=== PATIENT | female | born 1970 | race Caucasian/White ===

== ENCOUNTER 2021-11-21 10:04 | Outpatient (CLI) | payer BC, SELFPAY ==
[2021-11-21 12:41] LABS: Microalbumin Creatinine Ratio 0 mg/g (0-30); Microalbumin Urine 1 mg/dL
[2021-11-21 12:43] LABS: Potassium* 4.4 mmol/L (3.6-5.1); Sodium* 140 mmol/L (135-149)
[2021-11-21 12:46] LABS: Alanine Aminotransferase* 20 U/L (4-35); Alkaline Phosphatase* 57 U/L (40-150); Aspartate Amino Transferase* 22 U/L (12-35); Blood Urea Nitrogen* 19 mg/dL (7-30); Creatinine* 0.7 mg/dL (0.5-1.5); Estimated Glomerular Filt Rate 103 ml/min; Glucose* 93 mg/dL (60-115)
[2021-11-21 13:02] LABS: Vitamin D 25 Hydroxy* 72 ng/mL (30-80)
[2021-11-21 13:16] LABS: TSH With Reflex to FT4* 0.747 uIU/mL (0.270-4.200)
[2021-11-21 13:38] LABS: Vitamin B12* > 1000 pg/mL (243-894)
[2021-11-21 14:51] LABS: Bilirubin Total* 0.3 mg/dL (0.1-1.5); Carbon Dioxide* 28 mmol/L (20-32); Cholesterol* 198 mg/dL (90-199); HDL Cholesterol* 46 mg/dL (>=50); LDL Cholesterol Calculated 122 mg/dL (<100); Total Protein* 6.5 g/dL (6.0-8.3); Triglycerides* 148 mg/dL (40-149)
[2021-11-21 14:52] LABS: Albumin* 4.3 g/dL (3.3-5.0); Chloride* 106 mmol/L (96-114)
== END 2021-11-21 10:05 | disposition home or self-care (01) ==
PROVIDERS: PCP Family Medicine; Visit Provider Family Medicine
DX: D72.819 Decreased white blood cell count, unspecified (principal); R53.83 Other fatigue; E55.9 Vitamin D deficiency, unspecified; Q63.9 Congenital malformation of kidney, unspecified; Z13.6 Encounter for screening for cardiovascular disorders; R51.9 Headache, unspecified
CPT/HCPCS: 80053; 80061; 82043; 82306; 82570; 82607; 82728; 84443

== ENCOUNTER 2022-02-19 13:55 | Outpatient (CLI) | payer BC, SELFPAY ==
--- NOTE | 2022-02-19 14:00 | CRLHL7_ITS ---
For Patients: As a result of the Century Cures Act, medical imaging exams and procedure reports are released immediately into your electronic medical record. You may view this report before your referring provider. If you have questions, please contact your health care provider. BILATERAL SCREENING MAMMOGRAM WITH COMPUTER-AIDED DETECTION AND TOMOSYNTHESIS TECHNIQUE: CC and MLO views were obtained. These mammographic images have been obtained using full-field digital technique. These mammographic images were interpreted with the benefit of computer-aided detection. Breast Tomosynthesis was used in this interpretation. COMPARISON FILM: 02/13/20, 06/02/18, 05/28/17. FINDINGS: The breasts are heterogeneously dense, which may obscure small masses IMPRESSION: There is no radiographic evidence for malignancy. ASSESSMENT: BI-RADS Category 1: Negative RECOMMENDATION: Routine screening mammogram in 1 year. A lay language report of this examination will be provided to the patient. Carlos Becerra M.D. Diagnostic/Nuclear Medicine Radiologist [email or web address] TIEN/Dictated by: Carlos Becerra MD @ 02/20/2022 8:08:00 AM (Electronically Signed)
== END 2022-02-19 13:56 | disposition home or self-care (01) ==
PROVIDERS: PCP Family Medicine; Visit Provider Family Medicine
DX: Z12.31 Encounter for screening mammogram for malignant neoplasm of breast (principal); R92.2 Inconclusive mammogram
CPT/HCPCS: 77063; 77067

== ENCOUNTER 2023-02-17 14:22 | Outpatient (CLI) | payer OTHER, SELFPAY | END 2023-02-17 14:23 | disposition home or self-care (01) | LOC: NFLDREF 02-19 05:58 | PROVIDERS: PCP Family Medicine; Referring Provider Family Medicine; Visit Provider Physician Assistant | DX: R10.2 Pelvic and perineal pain (principal) | CPT/HCPCS: 87086; 87186 ==

== ENCOUNTER 2023-02-18 12:45 | Outpatient (CLI) | payer OTHER, SELFPAY ==
--- NOTE | 2023-02-18 13:00 | CRLHL7_ITS ---
For Patients: As a result of the Century Cures Act, medical imaging exams and procedure reports are released immediately into your electronic medical record. You may view this report before your referring provider. If you have questions, please contact your health care provider. CLINICAL HISTORY: Hypothyroidism TECHNIQUE: 2D flores scale and color Doppler images were acquired of the pelvis using a transvaginal approach. Power spectral doppler evaluation of the left ovary also performed. FINDINGS: The uterus is absent. The left ovary measures 2.2 x 1.4 x 1.2 cm in size and the right ovary is absent. The left ovary demonstrates normal arterial and venous blood flow on color Doppler analysis. Simple cyst left ovary measuring 10 x 6 x 8 millimeters. There are no suspicious fluid collections within the cul-de-sac. Normal power spectral Doppler flow of the left ovary. IMPRESSION: 1 centimeter simple cyst left ovary. No torsion. No adnexal mass or excess pelvic free fluid. Dictated by Tong Georges MD @ 02/19/2023 8:35:47 AM (Electronically Signed)
== END 2023-02-18 12:46 | disposition home or self-care (01) ==
LOC: US 12:46
PROVIDERS: PCP Family Medicine; Visit Provider Physician Assistant
DX: E03.9 Hypothyroidism, unspecified (principal); N83.202 Unspecified ovarian cyst, left side
CPT/HCPCS: 76830; 93976

== ENCOUNTER 2023-02-23 08:12 | Outpatient (CLI) | payer OTHER, SELFPAY ==
--- NOTE | 2023-02-23 08:15 | CRLHL7_ITS ---
For Patients: As a result of the Cures Act, medical imaging exams and procedure reports are released immediately into your electronic medical record. You may view this report before your referring provider. If you have questions, please contact your health care provider. BILATERAL SCREENING MAMMOGRAM WITH COMPUTER-AIDED DETECTION AND TOMOSYNTHESIS TECHNIQUE: CC and MLO views were obtained. These mammographic images have been obtained using full-field digital technique. These mammographic images were interpreted with the benefit of computer-aided detection. Breast tomosynthesis was used in this interpretation. COMPARISON FILM: 02/19/22, 02/13/20, 06/02/18. FINDINGS: There are scattered areas of fibroglandular density. IMPRESSION: There is no radiographic evidence for malignancy. ASSESSMENT: BI-RADS Category 1: Negative RECOMMENDATION: Routine screening mammogram in 1 year. A lay language report of this examination will be provided to the patient. TONG NEWTON M.D. Diagnostic Radiologist [email or web address] Transcribed: 02/23/2023, 4:[address]/Dictated by: Tong Newton MD @ 02/23/2023 1:25:00 PM (Electronically Signed)
== END 2023-02-23 08:13 | disposition home or self-care (01) ==
PROVIDERS: PCP Family Medicine; Visit Provider Family Medicine
DX: Z12.31 Encounter for screening mammogram for malignant neoplasm of breast (principal)
CPT/HCPCS: 77063; 77067

== ENCOUNTER 2023-04-15 08:43 | Outpatient (CLI) | payer OTHER, SELFPAY | END 2023-04-15 08:44 | disposition home or self-care (01) | LOC: NFLDREF 04-22 12:24 | PROVIDERS: PCP Family Medicine; Referring Provider Family Medicine; Visit Provider Family Medicine | DX: Z00.00 Encounter for general adult medical examination without abnormal findings (principal); E55.9 Vitamin D deficiency, unspecified; E78.5 Hyperlipidemia, unspecified; R53.83 Other fatigue; Z13.9 Encounter for screening, unspecified | CPT/HCPCS: 80053; 80061; 82306 ==

== ENCOUNTER 2023-04-27 08:11 | Outpatient (CLI) | payer OTHER, SELFPAY ==
--- NOTE | 2023-04-27 08:15 | CRLHL7_ITS ---
For Patients: As a result of the Century Cures Act, medical imaging exams and procedure reports are released immediately into your electronic medical record. You may view this report before your referring provider. If you have questions, please contact your health care provider. INDICATION: Follow up left ovarian cyst. TECHNIQUE: Transvaginal pelvic ultrasound. COMPARISON: 02/18/2023 pelvic ultrasound. FINDINGS: Uterus and right ovary have been removed. The left ovary appears normal and has normal color flow. Previously seen left ovarian cyst has resolved. No adnexal mass. IMPRESSION: 1. Left ovarian cyst has resolved. 2. Prior hysterectomy and right oophorectomy. Dictated by Alec Boggs MD @ 04/29/2023 8:05:00 AM (Electronically Signed)
== END 2023-04-27 08:12 | disposition home or self-care (01) ==
LOC: US 08:11
PROVIDERS: PCP Family Medicine; Visit Provider Physician Assistant
DX: N83.202 Unspecified ovarian cyst, left side (principal)
CPT/HCPCS: 76830

== ENCOUNTER 2023-11-20 09:04 | Outpatient (CLI) | payer OTHER, SELFPAY | END 2023-11-20 09:05 | disposition home or self-care (01) | LOC: NFLDREF 09:05 | PROVIDERS: PCP Family Medicine; Visit Provider Family Medicine | DX: N10 Acute pyelonephritis (principal); B96.20 Unspecified Escherichia coli [E. coli] as the cause of diseases classified elsewhere | CPT/HCPCS: 87086; 87186 ==

== ENCOUNTER 2024-06-06 08:50 | Outpatient (CLI) | payer OTHER, SELFPAY | END 2024-06-06 08:51 | disposition home or self-care (01) | LOC: NFLDREF 06-08 01:20 | PROVIDERS: PCP Family Medicine; Referring Provider Family Medicine; Visit Provider Family Medicine | DX: E78.5 Hyperlipidemia, unspecified (principal); E55.9 Vitamin D deficiency, unspecified; E66.3 Overweight; R53.83 Other fatigue | CPT/HCPCS: 80053; 80061; 82306 ==

== ENCOUNTER 2024-06-09 13:18 | Outpatient (CLI) | payer OTHER, SELFPAY | END 2024-06-09 13:19 | disposition home or self-care (01) | PROVIDERS: PCP Family Medicine; Visit Provider Family Medicine | DX: R53.83 Other fatigue (principal); E78.5 Hyperlipidemia, unspecified; E55.9 Vitamin D deficiency, unspecified; E66.3 Overweight | CPT/HCPCS: 82607; 82728; 84443 ==

== ENCOUNTER 2024-07-08 07:41 | Outpatient (CLI) | payer OTHER, SELFPAY ==
--- NOTE | 2024-07-08 07:45 | CRLHL7_ITS ---
For Patients: As a result of the Century Cures Act, medical imaging exams and procedure reports are released immediately into your electronic medical record. You may view this report before your referring provider. If you have questions, please contact your health care provider. BILATERAL SCREENING MAMMOGRAM WITH COMPUTER-AIDED DETECTION AND TOMOSYNTHESIS TECHNIQUE: CC and MLO views were obtained. These mammographic images have been obtained using full-field digital technique. These mammographic images were interpreted with the benefit of computer-aided detection. Breast Tomosynthesis was used in this interpretation. COMPARISON FILM: 02/23/23, 02/19/22, 02/13/20. FINDINGS: The breasts are heterogeneously dense, which may obscure small masses. IMPRESSION: There is no radiographic evidence for malignancy. ASSESSMENT: BI-RADS Category 1: Negative RECOMMENDATION: Routine screening mammogram in 1 year. A lay language report of this examination will be provided to the patient. Tong Georges M.D. Diagnostic Radiologist [email or web address] SP/Dictated by: Tong Georges MD @ 07/14/2024 9:39:00 AM (Electronically Signed)
== END 2024-07-08 07:42 | disposition home or self-care (01) ==
LOC: MAMMO 07:42
PROVIDERS: PCP Family Medicine; Visit Provider Family Medicine
DX: Z12.31 Encounter for screening mammogram for malignant neoplasm of breast (principal); R92.333 Mammographic heterogeneous density, bilateral breasts
CPT/HCPCS: 77063; 77067